=== PATIENT | female | born 1980 | race Caucasian/White ===

== ENCOUNTER → 2018-01-01 | Outpatient (CLI) | payer BC ==
--- NOTE | 2018-01-02 01:43 | MR ---
EXAMINATION TYPE: MR liver wo/w con DATE OF EXAM: 01/01/2018 COMPARISON: CT scan 12/11/2017 HISTORY: Abnormal CT Scan, Gadavist 10. Liver lesions. CONTRAST: Standard multiplanar, multisequence MRI departmental protocol utilizing 10 mL intravenous Gadavist ga dolinium contrast. FINDINGS: Liver has normal size and contour. Spleen and pancreas appear normal. Bile ducts are not di lated. There are rounded filling defects in the gallbladder consistent with gallstones. Gallbladder w all is not thickened. There is a 1.8 cm area of increased signal in the posterior right lobe of the liver on the T2 images. This shows progressive enhancement on the contrast serial delayed images. The remainder of the liver appears normal. There is no adrenal mass. Kidneys have normal size and contour. There is no hydronephrosis. There is no retroperitoneal adenopathy. IMPRESSION: Small lesion in the posterior right lobe of the liver shows progressive enhancement with contrast and is most consistent with hemangioma. This patient also has 2 other similar lesions in the left lobe o f the liver on the previous CT scan that are not characterized by this exam. These are also likely he mangiomata.
== END | disposition home or self-care (01) ==
LOC: RADMRIMAIN 19:35
PROVIDERS: ATTEND Surgery
DX: K76.9 Liver disease, unspecified (principal)
CPT/HCPCS: 74183; A9581

== ENCOUNTER 2018-01-10 08:32 | Day surgery (SDC) | payer BC ==
[2018-01-08 12:52] VITALS: BMI 31.4
[~2018-01-10 08:32] MED LIST: DEXAMETHASONE SOD PHOSPHATE 10 MG/ML 1 ML VIAL IV ONE; HEPARIN SODIUM,PORCINE 5,000 UNIT/ML 1 ML VIAL SQ ONE; LACTATED RINGERS 1,000 ML IV SCH; LIDOCAINE 1% 20 ML VIAL (10MG/ML) FOR IV START INTRADERMA PRN; MIDAZOLAM 2 MG/2 ML VIAL IV PRN; MORPHINE SULFATE 4 MG/ML SYRINGE IVP PRN; ONDANSETRON 4 MG/2 ML VIAL IVP ONE; SCOPOLAMINE 1.5MG/72HR PATCH TRANSDERM ONE; ceFAZolin IN SWFI 2 GM/20 ML SYRINGE IVP ONE
--- NOTE | 2018-01-10 09:38 | P.GSHP ---
History of Present Illness H&P Date: 01/10/18 Chief Complaint: Right upper quadrant pain This a 29-year-old female who presents today for laparoscopic cholestatic. Patient's had complaints of right quadrant pain. Her recent MRI shows evidence of cholelithiasis. Past Medical History Past Medical History: Thyroid Disorder Additional Past Medical History / Comment(s): severe abdominal pain,gallstones, hx intussusception History of Any Multi-Drug Resistant Organisms: None Reported Past Surgical History: Bowel Resection, Breast Surgery, Orthopedic Surgery Additional Past Surgical History / Comment(s): sinus,fallopian tube procedure Past Anesthesia/Blood Transfusion Reactions: No Reported Reaction Smoking Status: Current every day smoker - Past Family History Mother Family Medical History: Cancer Additional Family Medical History / Comment(s): skin Father Family Medical History: Cancer Additional Family Medical History / Comment(s): skin Medications and Allergies Home Medications Medication Instructions Recorded Confirmed Type Levothyroxine Sodium [Synthroid] 50 mcg PO QAM 06/15/14 01/10/18 History Omeprazole [PriLOSEC] 40 mg PO AC-BRKFST 06/15/14 01/10/18 History DULoxetine HCL [Cymbalta] 60 mg PO QAM 01/08/18 01/10/18 History Pnv,Calcium 72/Iron/Folic Acid 1 tab PO DAILY 01/08/18 01/10/18 History [ Plus Tablet] busPIRone HCL [Buspar] 30 mg PO BID 01/08/18 01/10/18 History Allergies Allergy/AdvReac Type Severity Reaction Status Date / Time adhesive Allergy Rash/Hives Verified 01/10/18 09:13 naproxen [From Naprosyn] Allergy Rash/Hives Verified 01/10/18 09:13 codeine AdvReac Vomiting Verified 01/10/18 09:13 Surgical - Exam Vital Signs Temp Pulse Resp BP Pulse Ox 99 F 92 18 117/58 96 01/10/18 09:10 01/10/18 09:10 01/10/18 09:10 01/10/18 09:10 01/10/18 09:10 - General well developed, no distress - Eyes PERRL - ENT normal pinna - Neck no masses - Respiratory normal expansion - Cardiovascular Rhythm: regular - Abdomen Mild rectal quadrant pain Abdomen: soft Results - Imaging Additional studies: MRI shows evidence of cholelithiasis and hemangioma Assessment and Plan Assessment: Right upper quadrant pain. Cholelithiasis We'll perform laparoscopic cholecystectomy
[2018-01-10] MEDS ORDERED: MIDAZOLAM 2 MG/2 ML VIAL ONE (10:19)
[2018-01-10] MEDS ORDERED: SUCCINYLCHOLINE CHLORIDE 100 MG/5 ML SYR IV ONE (10:19)
[2018-01-10] MEDS ORDERED: MORPHINE SULFATE 10 MG/ML SYRINGE ONE (10:19)
[2018-01-10] MEDS ORDERED: LIDOCAINE 1% INJ 10MG/ML (20 ML MDV) ONE (10:19)
[2018-01-10] MEDS ORDERED: NEOSTIGMINE 1 MG/ML 10 ML VIAL ONE (10:19)
[2018-01-10] MEDS ORDERED: PROPOFOL 10 MG/ML 20 ML VIAL IV ONE (10:19)
[2018-01-10] MEDS ORDERED: ROCURONIUM BROMIDE 10 MG/ML 10 ML VIAL IV ONE (10:19)
[2018-01-10] MEDS ORDERED: fentaNYL (PF) 50 MCG/ML 2 ML AMP ONE (10:19)
[2018-01-10] MEDS ORDERED: GLYCOPYRROLATE 0.2 MG/ML 2 ML VIAL ONE (10:19)
[2018-01-10] MEDS ORDERED: KETOROLAC 30 MG/ML 1 ML VIAL ONE (10:19)
[2018-01-10] MEDS ORDERED: BUPIVACAINE (PF) 0.25% 30 ML VIAL SQ ONE (10:44)
[2018-01-10] MEDS ORDERED: LACTATED RINGERS 1,000 ML IV ONE (11:10)
--- NOTE | 2018-01-10 11:16 | P.OP ---
Date of Procedure: 01/10/18 Preoperative Diagnosis: Cholecystitis Postoperative Diagnosis: Cholecystitis Cholelithiasis Procedure(s) Performed: Laparoscopic cholecystectomy Anesthesia: GARRETT Surgeon: Kp Reynoso Pathology: other (Gallbladder) Condition: stable Disposition: PACU Description of Procedure: The patient was placed on the operating table. The patient received a general endotracheal tube anesthesia. The patients abdomen was prepped and draped in the usual sterile fashion. Through an infraumbilical stab incision, the fascia of the anterior abdominal wall was grasped with a pair of Kochers and then the Veress needle was placed in the peritoneal cavity. Position of the Veress needle was confirmed with positive drop test. The abdomen was then insufflated. After adequate insufflation, the 10 mm trocar was placed in the peritoneal cavity. Following this the laparoscope was placed in the peritoneal cavity. The patient was placed in the head-up, right side up position and then a 5 mm trocar was placed in the right lateral and right subcostal position under direct visualization. A 8 mm trocar was placed in the epigastric position. The gallbladder was grasped in the fundus and infundibulum. Traction on the gallbladder was placed in the lateral and the cephalad positions. The triangle of Calot was visualized.. The cystic duct was bluntly dissected until the union of the cystic duct and common bile duct was seen. The cystic duct was then divided and sealed with the Harmonic scissors. A PDS Endoloop was then placed throughout the cystic duct stump. The cystic artery divided and sealed with the Harmonic scissors. The gallbladder was then removed from the liver bed using Harmonic scissors. The gallbladder was then extracted through the epigastric port site. Operative field was checked for any bleeding spots and Harmonic scissors was used to coagulate the liver bed. The abdomen was irrigated. The trocars were removed. The skin was closed using interrupted 3-0 Vicryl suture. Dermabond dressing were applied. The patient tolerated the procedure well.
[2018-01-10 11:35] VITALS: TEMP 97.3
[2018-01-10 12:00] VITALS: RESP 18
[2018-01-10] MEDS ORDERED: HYDROcodone/APAP 7.5-325MG 1 EACH TAB PO ONE (12:39)
[2018-01-10 13:23] VITALS: BP 124/76; PULSE 76
== END 2018-01-10 13:35 | disposition home or self-care (01) ==
LOC: OR 08:32
PROVIDERS: ATTEND Surgery
DX: K80.12 Calculus of gallbladder with acute and chronic cholecystitis without obstruction (principal); F17.210 Nicotine dependence, cigarettes, uncomplicated; F41.9 Anxiety disorder, unspecified; E07.9 Disorder of thyroid, unspecified; F32.9 Major depressive disorder, single episode, unspecified; K21.9 Gastro-esophageal reflux disease without esophagitis; Z79.899 Other long term (current) drug therapy; Z88.6 Allergy status to analgesic agent; Z88.5 Allergy status to narcotic agent; Z91.048 Other nonmedicinal substance allergy status
CPT/HCPCS: 81025; 88304; 47562; J2250; J1644; J1100; J2710; J2270; J2405; J2001; J3010; J1885; J0330; J2704; J0690